=== PATIENT | female | born 1975 | race Caucasian/White ===

== ENCOUNTER → 2018-03-22 10:56 | Outpatient (CLI) | payer OTHER, SELFPAY ==
--- NOTE | 2018-03-22 11:00 | RAD_ITS ---
STUDY: X-RAY CHEST REASON FOR EXAM: Female, 42 years old. Sarcoid TECHNIQUE: Frontal and lateral views of the chest were obtained. COMPARISON: None. FINDINGS: The lungs are adequately aerated. There are no focal airspace opacities. There is no demonstrated pleural abnormality. The cardiac silhouette is normal in size. There is bilateral hilar prominence, right greater than left. Normal visualized pulmonary arteries. Normal visualized aortic arch and descending thoracic aorta. The thoracic spine is unremarkable. The visualized ribs, clavicles, and shoulders are unremarkable. There is no demonstrated abnormality of the visualized upper abdomen. RAD/Chest PA and Lateral IMPRESSION: No acute cardiopulmonary abnormalities. There is bilateral hilar fullness, likely representing enlarged lymph nodes. This is more pronounced on the right. There are no fibrotic changes seen in the lungs. Electronically Signed: Bonnie Márquez MD at 19:36 EDT Tel Direct: [phone], Service support ,
== END ==
PROVIDERS: Family Provider Nurse Practitioner; PCP Nurse Practitioner; Visit Provider Nurse Practitioner
DX: D86.9 Sarcoidosis, unspecified (principal)
CPT/HCPCS: 71046

== ENCOUNTER → 2022-05-03 | Outpatient (CLI) | payer OTHER, SELFPAY | END | disposition home or self-care (01) | LOC: LABSPEC 13:05 | PROVIDERS: PCP Nurse Practitioner; Referring Provider Registered Nurse; Visit Provider Registered Nurse | DX: R10.32 Left lower quadrant pain (principal); R79.82 Elevated C-reactive protein (CRP) | CPT/HCPCS: 86140 ==

== ENCOUNTER 2023-08-08 11:46 | Emergency (ER) | payer OTHER, SELFPAY ==
[2023-08-08 11:47] VITALS: BP 149/77; PULSE 123; RESP 18; TEMP 36; O2SAT 100; BMI 29.9
--- NOTE | 2023-08-08 12:04 | EX.ED.DYSGE1 ---
HPI History of Present Illness Chief Complaint: Palpitations Informant: patient Narrative Narrative: 47-year-old female presenting with palpitations that have been occurring episodically for the past week or so but today is much more prominent with the lightheadedness. She states she was monitoring her heart rate with a finger home pulse oximeter, she was ranging anywhere from 60-90 and feeling like her heart was intermittently beating hard. She denies any dyspnea or chest pains of any sort other than that. In the past week she has had no dyspnea, chest discomfort, pleuritic discomfort, or lightheadedness/syncope, and she did not have any syncope or near syncope today. She denies any recent pain or swelling in her legs, recent immobilization, hospitalization, or surgery. She denies any history of DVT or PE. She takes levothyroxine for Gale thyroiditis which has not been changed lately, and she has sarcoidosis for which the majority of time she takes nothing, she did not have any symptoms of a flareup lately. Denies any other recent illness. Denies any new stimulants and does not use any drugs. [facility] Medical History (Updated 08/08/23 @ 15:[address] Clarence Bunn MD) History of frequent headaches Thyroid disease Home Medications Lactobacillus acidophil,plantar-Bifido no.7 15 billion cell capsule (up4 Probiotics Adult) cap PO 10/24/19 [History Last Taken Unknown] benzonatate 200 mg capsule 200 mg PO TID PRN cough #20 caps 10/24/19 [Rx Last Taken Unknown] fluconazole 200 mg tablet 200 mg PO DAILY #1 TAB 10/24/19 [Rx Last Taken Unknown] levothyroxine 25 mcg tablet (Synthroid) 25 mcg PO DAILY 10/24/19 [History Last Taken Unknown] multivitamin 1 tab PO DAILY 10/24/19 [History Last Taken Unknown] Allergy/AdvReac Type Severity Reaction Status Date / Time No Known Allergies Allergy Verified 08/08/23 11:47 Surgical History History of tonsillectomy and adenoidectomy Social History Smoking Status: Never smoker alcohol intake: never ROS ROS ED Constitutional Constitutional ED: Denies chills or fever(s) Eyes Eyes: Denies change in vision or diplopia ENT ENT ED: Denies rhinorrhea or sore throat Cardiovascular Cardiovascular: Reports lightheadedness and palpitations; Denies chest pain, leg edema or orthostatic symptoms Respiratory/Chest Respiratory/Chest: Denies cough or dyspnea Gastrointestinal Gastrointestinal: Reports nausea; Denies abdominal pain, diarrhea or vomiting Genitourinary Genitourinary ED: Denies dysuria or hematuria Musculoskeletal Musculoskeletal: Denies back pain or neck pain Integumentary Denies abscess or rash Neurologic Neurologic: Denies headache(s), paresthesias or weakness Psychiatric Psychiatric: Denies suicidal ideation or suicidal thoughts EXAM Physical Exam Const Vital Signs: 08/08/23 11:47 08/08/23 12:33 08/08/23 14:55 Temperature 96.8 F L Temperature Source Temporal Pulse Rate 123 H Respiratory Rate 18 Blood Pressure 149/77 H Blood Pressure Mean 101 Pulse Ox 100 Oxygen Delivery Method Room Air Room Air Room Air 08/08/23 13:00 08/08/23 13:10 Temperature Temperature Source Pulse Rate 104 H Respiratory Rate 15 Blood Pressure 122/74 H Blood Pressure Mean 89 Pulse Ox 100 Oxygen Delivery Method Positive well nourished and well developed General Appearance ED: well developed and NAD HEENT Reports moist mucous membranes normocephalic and atraumatic Eyes PERRL and EOMs intact bilaterally Neck full ROM and supple Resp normal respiratory effort and clear to auscultation bilaterally Effort and Inspection: able to speak in complete sentences Cardio regular rate, regular rhythm and no murmurs Rate: tachycardic GI non-tender and non-distended Auscultation: normoactive bowel sounds Palpation: soft Back/Spine no CVA tenderness General Back: other FROM Extremity normal to inspection and no calf tenderness General Extremety ED: Negative for edema, pulses abnormal or tenderness General Extremity: Negative for edema or pulses abnormal Neuro oriented x3, CN's II-XII intact bilaterally and no sensory deficits noted Sensorium / Orientation: awake and alert Motor Exam: strength 5/5 throughout Psych mental status grossly normal Mood & Affect: anxious Skin no rashes or lesions noted and no wounds MDM MDM MDM Narrative Medical decision making narrative: Upon getting patient on the monitor she had a mild resting tachycardia, but throughout the rest of her ED visit over 3 hours she had no more episodes of palpitations. She has been having them fairly frequently over the past week. Her workup is negative. D-dimer is negative, troponin is 3, her EKG showed sinus tachycardia at 109 but is otherwise normal on my interpretation, her TSH is actually a little high, certainly indicating that she is not in an acute hyperthyroid state. Her potassium was a little low unclear if that is related here, we did give her some oral potassium for temporary replacement. Her blood pressure was 170 when nurse first checked in triage. On reevaluation without treating her with anything specifically it is 122/74. Unknown if spiking blood pressure is causing any of this, or if she had a dysrhythmia that in turn cause her blood pressure to react transiently. Need to capture her rhythm when she is having palpitations, as differential was wide including A-fib, ectopic atrial tachycardia, ventricular or atrial ectopy, AVNRT, or other supraventricular dysrhythmias. Sounds less likely to be a ventricular dysrhythmia. She is low risk and stable for discharge home close outpatient follow-up, we did have Holter monitors in stock to place on her so we placed a 24-hour and she is advised to follow-up closely as an outpatient she is comfortable with that plan. Lab Data Attestation: I reviewed the patient's lab results. Labs: Laboratory Results - last 24 hr 08/08/23 12:05 WBC 7.4 RBC 5.01 Hgb 16.0 H Hct 44.9 MCV 89.6 MCH 31.9 MCHC 35.6 RDW Std Deviation 39.0 RDW Coeff of Dianne 11.9 Plt Count 405 MPV 10.3 Immature Gran % (Auto) 0.300 Neut % (Auto) 55.0 Lymph % (Auto) 31.5 [place] % (Auto) 7.0 Eos % (Auto) 5.1 H Baso % (Auto) 1.1 H Absolute Neuts (auto) 4.1 Absolute Lymphs (auto) 2.33 Nucleated RBC % 0 D-Dimer Quant (PE/DVT) < 0.27 L Sodium 139 Potassium 3.1 L Chloride 105 Carbon Dioxide 24.0 Anion Gap 10 BUN 8 Creatinine 1.01 Estim Creat Clear Calc 58.82 Est GFR (MDRD) Af Amer 75 Est GFR (MDRD) Non-Af 62 BUN/Creatinine Ratio 7.9 L Glucose 152 H Calcium 9.4 Troponin I High Sens 3 TSH 5.68 H Rhythm Strip Rhythm Strip: Sinus Tach Rate: 112 Ectopy: None EKG Initial EKG: Attestation: I personally reviewed and interpreted this EKG as follows: Interpretation: No Acute Injury Pattern and Sinus Tachycardia (Otherwise normal) Discharge Plan Triage Chief Complaint: Palpitations ED Provider: Clarence Bunn Dx/Rx/DC Orders Clinical Impression: Heart palpitations, Episode of hypertension, Acute hypokalemia Instructions: ED Palpitations Prescriptions: No Action levothyroxine [Synthroid] 25 mcg tablet 25 mcg PO DAILY multivitamin Tablet 1 tab PO DAILY up4 Probiotics Adult 15 billion cell capsule PO benzonatate 200 mg capsule 200 mg PO TID PRN (Reason: cough) Qty: 20 0RF fluconazole 200 mg tablet 200 mg PO DAILY Qty: 1 0RF Rx Instructions: To be taken 24 hours after completing antibiotics and only if symptomatic at that time Primary Care Provider: Tiarra Braun NP Referrals: Tiarra Braun NP, [employer] [employer] [Primary Care Provider] - 3-5 Days Disposition Disposition: Home, Self Care
--- NOTE | 2023-08-08 12:05 | NURSING ---
NO OLD EKGS
[2023-08-08 12:23] LABS: Absolute Lymphocyte Count 2.33 X10^3/uL (0.83-4.51); Absolute Neutrophil Count 4.1 X10^3/uL (2.0-7.7); Basophil# 0.08 X10^3/uL; Basophil% 1.1 % (0-1); Eosinophil# 0.38 X10^3/uL; Eosinophils% 5.1 % (0-5); Hematocrit 44.9 % (37-47); Lymphocyte # 2.33 X10^3/ul (0.83-4.51); Lymphocyte % 31.5 % (19-41); Mean Corp Hgb Conc 35.6 g/dL (32-36); Mean Corpuscular Hgb 31.9 pg (27.0-32.0); Mean Corpuscular Volume 89.6 fL (81-99); Mean Platelet Vol. 10.3 fl (6.2-12.0); Monocyte# 0.52 X10^3/uL; NRBC Flagged by Analyzer 0 % (0-5); Neutrophil # 4.07 X10^3/uL (2.7-7.7); Platelet Count 405 K/mm3 (150-450); RBC Distribution Width CV 11.9 % (11.6-14.6); Red Blood Count 5.01 M/mm3 (4.2-5.4); White Blood Count 7.4 K/mm3 (4.4-11.0)
[2023-08-08] MEDS: 0.9% Normal Saline (1000mL) 1,000 ML 150 ML IV (12:31)
[2023-08-08 12:42] LABS: Anion Gap 10 (5-15); BUN 8 mg/dL (7-18); BUN/Creat Ratio 7.9 RATIO (10-20); Calcium,Total 9.4 mg/dL (8.5-10.1); Chloride 105 mmol/L (98-107); Creatinine, Serum 1.01 mg/dL (0.55-1.02); EST Glomerular Filtration Rate 62 mL/min (>60); Est Glom Filt Rate - Afr Amer 75 mL/min (>60); Estimated Creatinine Clearance 58.82 ml/min; Glucose 152 mg/dL (74-106); Potassium 3.1 mmol/L (3.5-5.1); Sodium Level 139 mmol/L (136-145); Thyroid Stim Hormone (TSH) 5.68 uIU/mL (0.358-3.74); Troponin-I HS 3 pg/mL (3.0-54.0)
[2023-08-08 12:45] LABS: D-Dimer Quantitative (DVT/PE) < 0.27 FEU/ug/m (0.27-0.49)
[2023-08-08 13:00] VITALS: BP 122/74
[2023-08-08 13:10] VITALS: PULSE 104; RESP 15; O2SAT 100
[2023-08-08] MEDS: Potassium Chloride Oral Tablet 20 MEQ 40 MEQ PO (14:13)
== END 2023-08-08 15:14 | disposition home or self-care (01) ==
PROVIDERS: Emergency Provider Emergency Medicine; PCP Registered Nurse; Referring Provider Emergency Medicine; Visit Provider Emergency Medicine
DX: R00.2 Palpitations (principal); E87.6 Hypokalemia; E06.3 Autoimmune thyroiditis; R03.0 Elevated blood-pressure reading, without diagnosis of hypertension; Z79.899 Other long term (current) drug therapy
CPT/HCPCS: 80048; 84443; 84484; 85025; 85379; 93005; 96360; 96361; 99284; J7030

== ENCOUNTER → 2023-08-08 | Outpatient (CLI) | payer OTHER, SELFPAY | END | disposition home or self-care (01) | LOC: PSN 14:54 | PROVIDERS: PCP Registered Nurse; Referring Provider Emergency Medicine; Visit Provider Emergency Medicine | DX: Z00.00 Encounter for general adult medical examination without abnormal findings (principal) ==

== ENCOUNTER 2023-08-21 10:34 | Emergency (ER) | payer OTHER, SELFPAY ==
[2023-08-21 10:35] VITALS: BP 134/85; PULSE 110; RESP 18; TEMP 36.2; O2SAT 98; BMI 28.8
--- NOTE | 2023-08-21 10:48 | EKG12_ITS ---
Test Reason : PALP Blood Pressure : / mmHG Vent. Rate : 107 BPM Atrial Rate : 107 BPM P-R Int : 138 ms QRS Dur : 076 ms QT Int : 352 ms P-R-T Axes : 056 011 052 degrees QTc Int : 469 ms Sinus tachycardia Otherwise normal ECG Confirmed by LATOYA ROBLES, CHARLES ([id number]), production editor LEIDY DE DIOS ([id number]) on 08/22/2023 9:49:42 AM Referred By: REBEKAH/JAZMIN Confirmed By:CHARLES KLEIN MD
--- NOTE | 2023-08-21 10:49 | EX.ED.DYSGE1 ---
HPI History of Present Illness Chief Complaint: Palpitations Narrative Narrative: 48-year-old female past medical history of hypothyroidism presents with heart palpitations that she has had for about 3 weeks. She states she was seen in the emergency department, then followed up with her primary care provider. She states that they did blood work, and she is supposed to have an echocardiogram on Monday, along with a weeklong Holter monitor. She became concerned today because she had a heart rate as high as 125, then she had a significant drop to heart rate in the 40s. Additionally, she states her pulse ox was also in the 60s. This happened 3 times today. [facility] Medical History (Updated 08/21/23 @ 12:09 by Servando Donahue MD) History of frequent headaches Thyroid disease Home Medications Lactobacillus acidophil,plantar-Bifido no.7 15 billion cell capsule (up4 Probiotics Adult) cap PO 10/24/19 [History Last Taken Unknown] benzonatate 200 mg capsule 200 mg PO TID PRN cough #20 caps 10/24/19 [Rx Last Taken Unknown] fluconazole 200 mg tablet 200 mg PO DAILY #1 TAB 10/24/19 [Rx Last Taken Unknown] levothyroxine 25 mcg tablet (Synthroid) 25 mcg PO DAILY 10/24/19 [History Last Taken Unknown] multivitamin 1 tab PO DAILY 10/24/19 [History Last Taken Unknown] Allergy/AdvReac Type Severity Reaction Status Date / Time No Known Allergies Allergy Verified 08/08/23 11:47 Surgical History History of tonsillectomy and adenoidectomy Social History Smoking Status: Never smoker alcohol intake: never ROS ROS ED ROS Narrative Constitutional: No fever, no chills. HEENT: No sore throat. No neck pain. No loss of vision. No rhinorrhea. Cardiovascular: No chest pain. Positive palpitations. No pedal edema. Respiratory: No cough, no shortness of breath. Abdominal: No abdominal pain. No nausea. No vomiting. Genitourinary: No dysuria. No hematuria. Musculoskeletal: No myalgias. No arthralgias. Neurologic: No headaches. No dizziness. No lightheadedness. Skin: No rash. No change in color. Psychiatric: No depression. No anxiety. EXAM Physical Exam Narrative Exam Narrative: Afebrile. Vital signs noted. HEENT: Normocephalic. Atraumatic. PERRL, EOMI. Neck soft and supple. No point tenderness or step off. Cardiovascular: Regular, positive tachycardia, no murmurs, rubs, or gallops appreciated. Respiratory: No tachypnea. Lungs clear to auscultation bilaterally. Gastrointestinal: Abdomen soft, nontender, with normoactive bowel sounds. No rebound or guarding. Neurological: Awake. Alert. Nonfocal, nonlateralizing. Skin: No rash. Normal color. No pallor. Musculoskeletal: No pedal edema. Full range of motion extremities. Const Vital Signs: 08/21/23 10:35 08/21/23 11:02 08/21/23 12:22 Temperature 97.1 F L Temperature Source Temporal Pulse Rate 110 H Pulse Rate [Lying] 86 Pulse Rate [Sitting (for 1 minute prior to obtaining)] 89 Pulse Rate [Standing (for 1 minute prior to obtaining)] 93 Respiratory Rate 18 Blood Pressure 134/85 H 136/75 H Blood Pressure [Lying] 126/78 H Blood Pressure [Sitting (for 1 minute prior to obtaining)] 125/75 H Blood Pressure [Standing (for 1 minute prior to obtaining)] 125/82 H Blood Pressure Mean 101 95 Blood Pressure Mean [Lying] 94 Blood Pressure Mean [Sitting (for 1 minute prior to obtaining)] 91 Blood Pressure Mean [Standing (for 1 minute prior to obtaining)] 96 Pulse Ox 98 Oxygen Delivery Method Room Air MDM MDM MDM Narrative Medical decision making narrative: Concern is for tachybradycardia syndrome versus sinus tachycardia. I have lower suspicion for pulmonary embolism as her pulse ox is currently 98% on room air but she is tachycardic. EKG was obtained and interpreted by myself independently as sinus tachycardia at 107 bpm without ectopy or acute ST changes. No STEMI. She will be placed on the supervisor pipe joints and orthostatics obtained as well. I reviewed her orthostatics and they are negative. She had a normal heart rate, below 100. I reviewed her laboratory work from today and her WBC count is normal at 7.0, hemoglobin normal at 15.0, hematocrit 43.2, platelet count normal at 410. D-dimer is negative at 0.29. High-sensitivity troponin is 4. EKG as documented above. Chest x-ray in 1 view interpreted by myself shows no evidence of an acute process, I have reviewed the radiology report which confirms my independent interpretation. Electrolyte panel was unremarkable except for hypokalemia of 3.2 which was replaced orally with 40 mill equivalents. Chloride was slightly elevated at 109 which I think is nonspecific. I did add a magnesium as she had hypokalemia previously and that is normal at 2.5. Her TSH is elevated above 8. Last time it was checked it was 5. She states that she has followed up with her public health worker and takes 125 mcg of levothyroxine, and when it was checked by endocrinology, her TSH was normal. Regardless, at this point in time I feel she can be discharged to follow-up with her outpatient testing including 1 week Holter monitor and echocardiogram. Return instructions to the emergency department were reviewed. Disposition is discharged home in stable condition. History & Record Review Discussion w/independent historian: Patient Additional record(s) reviewed:: Prior ED visit and Prior labs Lab Data Attestation: I reviewed the patient's lab results. Labs: Laboratory Results - last 24 hr 08/21/23 10:50 WBC 7.0 RBC 4.84 Hgb 15.0 Hct 43.2 MCV 89.3 MCH 31.0 MCHC 34.7 RDW Std Deviation 38.2 RDW Coeff of Dianne 11.8 Plt Count 410 MPV 10.2 Immature Gran % (Auto) 0.300 Neut % (Auto) 67.1 Lymph % (Auto) 23.8 [place] % (Auto) 5.9 Eos % (Auto) 2.0 Baso % (Auto) 0.9 Absolute Neuts (auto) 4.7 Absolute Lymphs (auto) 1.66 Nucleated RBC % 0 D-Dimer Quant (PE/DVT) 0.29 Sodium 141 Potassium 3.2 L Chloride 109 H Carbon Dioxide 24.0 Anion Gap 8 BUN 8 Creatinine 0.99 Estim Creat Clear Calc 59.36 Est GFR (MDRD) Af Amer 77 Est GFR (MDRD) Non-Af 63 BUN/Creatinine Ratio 8.1 L Glucose 178 H Calcium 9.0 Magnesium 2.5 Total Bilirubin 0.50 AST 23 ALT 33 Alkaline Phosphatase 56 Troponin I High Sens 4 Total Protein 7.8 Albumin 4.2 Globulin 3.6 Albumin/Globulin Ratio 1.2 TSH 8.36 H Radiography Diagnostic Testing: Clinical Impression(s) from Imaging Studies Chest X-Ray 08/21/23 11:10 IMPRESSION: Normal x-ray examination of the chest. Electronically Signed: Huang Hussein MD at 11:22 EST , Discharge Plan Triage Chief Complaint: Palpitations ED Provider: Servando Donahue Dx/Rx/DC Orders Clinical Impression: Palpitations, Hypothyroidism, Tachycardia, Hypokalemia Instructions: ED About Arrhythmias, ED Hypothyroidism, ED Hypokalemia, ED Palpitations Prescriptions: No Action levothyroxine [Synthroid] 25 mcg tablet 25 mcg PO DAILY multivitamin Tablet 1 tab PO DAILY up4 Probiotics Adult 15 billion cell capsule PO benzonatate 200 mg capsule 200 mg PO TID PRN (Reason: cough) Qty: 20 0RF fluconazole 200 mg tablet 200 mg PO DAILY Qty: 1 0RF Rx Instructions: To be taken 24 hours after completing antibiotics and only if symptomatic at that time Primary Care Provider: Tiarra Braun NP Referrals: Lupillo Crawford MD [Med Staff - Active Staff] - As soon as possible Tiarra Braun NP, [employer] [employer] [Primary Care Provider] - 1-2 Days if not improving Activity Restrictions/Additional Instructions: Have your potassium rechecked in a few days by your primary care provider. Follow-up regarding your elevated TSH with your public health worker. Have your outpatient tests of echocardiogram and Holter monitor performed as well. Return with consistently low or high heart rate, new or worsening symptoms. Disposition Disposition: Home, Self Care Discharge Date/Time: 08/21/23 12:22
[2023-08-21 11:02] VITALS: BP 125/75; BP 125/82; BP 126/78; PULSE 86; PULSE 89; PULSE 93
[2023-08-21 11:02] LABS: Absolute Lymphocyte Count 1.66 X10^3/uL (0.83-4.51); Absolute Neutrophil Count 4.7 X10^3/uL (2.0-7.7); Basophil# 0.06 X10^3/uL; Basophil% 0.9 % (0-1); Eosinophil# 0.14 X10^3/uL; Hematocrit 43.2 % (37-47); Lymphocyte # 1.66 X10^3/ul (0.83-4.51); Lymphocyte % 23.8 % (19-41); Mean Corp Hgb Conc 34.7 g/dL (32-36); Mean Corpuscular Volume 89.3 fL (81-99); Mean Platelet Vol. 10.2 fl (6.2-12.0); Monocyte# 0.41 X10^3/uL; Monocyte% 5.9 % (0-10); NRBC Flagged by Analyzer 0 % (0-5); Neutrophil # 4.68 X10^3/uL (2.7-7.7); Neutrophil % 67.1 % (47-70); Platelet Count 410 K/mm3 (150-450); RBC Distribution Width CV 11.8 % (11.6-14.6); RBC Distribution Width SD 38.2 fl (35.1-43.9); Red Blood Count 4.84 M/mm3 (4.2-5.4)
[2023-08-21] MEDS: 0.9% Normal Saline (1000mL) 1,000 ML 1000 ML IV (11:03)
--- NOTE | 2023-08-21 11:10 | RAD_ITS ---
STUDY: X-RAY CHEST REASON FOR EXAM: Female, 48 years old. Coronary artery disease . History of sarcoid. TECHNIQUE: Single AP portable view of the chest. COMPARISON: Comparison is made with prior study dated March 22, 2018. FINDINGS: The lungs are clear and expanded. There is no demonstrated pleural abnormality. Normal size heart. Normal mediastinum and aleksandar. Normal visualized pulmonary arteries. Normal visualized aortic arch and descending thoracic aorta. Normal visualized thoracic spine. Normal visualized ribs, clavicles, and shoulders. There is no demonstrated abnormality of the visualized soft tissue structures of the upper abdomen. RAD/Chest 1 View (Portable) IMPRESSION: Normal x-ray examination of the chest. Electronically Signed: Huang Hussein MD at 11:22 EST ,
[2023-08-21 11:19] LABS: D-Dimer Quantitative (DVT/PE) 0.29 FEU/ug/m (0.27-0.49)
[2023-08-21 11:22] LABS: ALB/GLOB Ratio 1.2 RATIO (0.9-2.4); AST(SGOT) 23 U/L (15-37); Alanine Aminotransfer ALT/SGPT 33 U/L (13-56); Albumin, Serum 4.2 g/dL (3.2-5.0); Alkaline Phosphatase 56 U/L (45-117); Anion Gap 8 (5-15); BUN 8 mg/dL (7-18); BUN/Creat Ratio 8.1 RATIO (10-20); Chloride 109 mmol/L (98-107); Creatinine, Serum 0.99 mg/dL (0.55-1.02); EST Glomerular Filtration Rate 63 mL/min (>60); Est Glom Filt Rate - Afr Amer 77 mL/min (>60); Estimated Creatinine Clearance 59.36 ml/min; Globulin 3.6 g/dL (2.2-4.2); Glucose 178 mg/dL (74-106); Potassium 3.2 mmol/L (3.5-5.1); Protein, Total 7.8 g/dL (6.4-8.2); Sodium Level 141 mmol/L (136-145); Thyroid Stim Hormone (TSH) 8.36 uIU/mL (0.358-3.74); Troponin-I HS 4 pg/mL (3.0-54.0)
[2023-08-21 11:51] LABS: Magnesium 2.5 mg/dL (1.6-2.6)
[2023-08-21] MEDS: Potassium Chloride Oral Tablet 20 MEQ 40 MEQ PO (12:05)
[2023-08-21 12:22] VITALS: BP 136/75
== END 2023-08-21 12:22 | disposition home or self-care (01) ==
PROVIDERS: Emergency Provider Emergency Medicine; PCP Registered Nurse; Visit Provider Emergency Medicine
DX: R00.2 Palpitations (principal); E87.6 Hypokalemia; E03.9 Hypothyroidism, unspecified; Z79.899 Other long term (current) drug therapy; R00.0 Tachycardia, unspecified
CPT/HCPCS: 71045; 80053; 83735; 84443; 84484; 85025; 85379; 93005; 96360; 99285; J7030; A4216

== ENCOUNTER 2024-06-07 07:36 | Emergency (ER) | payer OTHER, SELFPAY ==
[2024-06-07 07:37] VITALS: BP 156/79; PULSE 114; RESP 16; TEMP 36.8; O2SAT 99; BMI 28.3
[2024-06-07 07:39] VITALS: BP 156/79; PULSE 111; RESP 16; TEMP 36.8; O2SAT 99
--- NOTE | 2024-06-07 07:57 | EX.ED.DYSGE1 ---
HPI History of Present Illness Chief Complaint: Abd Pain Informant: patient Narrative Narrative: 48-year-old female presenting to the emergency room abdominal pain diarrhea. Patient states that last Monday she began to experience intermittent abdominal pain that seem to move positions. She saw her doctor on Monday and was prescribed Augmentin because she has a history of diverticulitis. She has had recent EGD and colonoscopy with Dr. Henderson. She notes low-grade temperatures. On Monday she developed diarrhea. She states particular at night. She notes some anorexia and notes that if she does try to eat something that seems to make her symptomology worse. She denies any rashes cough sore throat rhinorrhea. She denies urinary symptoms. No prior abdominal surgery [facility] Medical History (Updated 06/07/24 @ 10:[address] Nate Dozier DO) Thyroid disease History of frequent headaches Home Medications ?Medication ?Instructions ?Recorded ?Last Taken ?Type Lactobacillus cap PO 10/24/19 Unknown History acidophil,plantar-Bifido no.7 15 billion cell capsule (up4 Probiotics Adult) benzonatate 200 mg capsule 200 mg PO TID PRN cough #20 caps 10/24/19 Unknown Rx fluconazole 200 mg tablet 200 mg PO DAILY #1 TAB 10/24/19 Unknown Rx levothyroxine 25 mcg tablet 25 mcg PO DAILY 10/24/19 Unknown History (Synthroid) multivitamin 1 tab PO DAILY 10/24/19 Unknown History Allergy/AdvReac Type Severity Reaction Status Date / Time No Known Allergies Allergy Verified 06/07/24 07:39 Surgical History History of tonsillectomy and adenoidectomy Social History Smoking Status: Never smoker alcohol intake: never ROS ROS ED Constitutional Constitutional ED: Reports fever(s) and other Details: low grade fevers ; Denies chills or weight loss Eyes Eyes: Denies change in vision or diplopia ENT ENT ED: Denies ear pain, rhinorrhea or sore throat Cardiovascular Cardiovascular: Denies chest pain, orthopnea, palpitations or racing heartbeat Respiratory/Chest Respiratory/Chest: Denies cough, dyspnea or orthopnea Gastrointestinal Gastrointestinal: Reports abdominal pain, diarrhea and other Details: anorexia ; Denies nausea or vomiting Genitourinary Genitourinary ED: Denies dysuria, hematuria or urinary frequency Musculoskeletal Musculoskeletal: Denies arthralgias or myalgias Integumentary Denies abscess or rash Neurologic Neurologic: Denies headache(s) or weakness Psychiatric Psychiatric: Denies anxiety, depression, suicidal ideation or suicidal thoughts Endocrine Endocrinology: Denies polydipsia, polyphagia or polyuria Allergic/Immunologic Allergic/Immunologic ED: Denies mouth swelling, tongue swelling or urticaria EXAM Physical Exam Const Vital Signs: 06/07/24 07:37 06/07/24 07:39 06/07/24 09:36 Temperature 98.3 F 98.3 F Temperature Source Oral Oral Pulse Rate 114 H 111 H 74 Respiratory Rate 16 16 16 Blood Pressure 156/79 H 156/79 H 136/82 H Blood Pressure Mean 104 104 100 Pulse Ox 99 99 99 Oxygen Delivery Method Room Air Room Air 06/07/24 10:29 Temperature 98 F Temperature Source Pulse Rate 74 Respiratory Rate 16 Blood Pressure 136/82 H Blood Pressure Mean 100 Pulse Ox 99 Oxygen Delivery Method Positive well nourished and well developed General Appearance ED: well developed HEENT Reports normocephalic, head/scalp atraumatic and moist mucous membranes Eyes PERRL and EOMs intact bilaterally Neck no lymphadenopathy, supple and no JVD Resp normal respiratory effort and clear to auscultation bilaterally Cardio regular rate, regular rhythm and no murmurs GI GI Narrative: soft minimal ttp Inspection: Negative for abdominal distention Auscultation: normoactive bowel sounds Palpation: soft; Negative for guarding or rebound tenderness present Back/Spine no CVA tenderness and normal ROM Extremity normal to inspection General Extremety ED: Negative for edema General Extremity: Negative for edema Neuro oriented x3 and CN's II-XII intact bilaterally Sensorium / Orientation: alert Motor Exam: strength 5/5 throughout Psych mental status grossly normal Mood & Affect: Negative for depressed or tearful Skin no rashes or lesions noted and no wounds MDM MDM MDM Narrative Medical decision making narrative: Differential diagnosis would include but not limited to diverticulitis diverticular abscess colitis appendicitis biliary disease medication reaction UTI Patient's white count is 9.5 hemoglobin 15.8 BMP with a creatinine 1.04 normal LFTs normal lipase test negative urinalysis negative for obvious infection CT of the abdomen pelvis demonstrates diverticulosis but no evidence of colitis or active diverticulitis. I spoke with the patient. As a not seeing any inflammatory changes and a possibility could be that some of the diarrhea would be related to her medication would have her stop the antibiotic. Heart rate is down to 74 with normal blood pressure. Patient will be discharged home follow-up with primary care return if worsening History & Record Review Discussion w/independent historian: Patient Lab Data Attestation: I reviewed the patient's lab results. Labs: Laboratory Results - last 24 hr 06/07/24 06/07/24 08:35 09:14 WBC 9.5 RBC 5.04 Hgb 15.8 H Hct 45.5 MCV 90.3 MCH 31.3 MCHC 34.7 RDW Std Deviation 40.0 RDW Coeff of Dianne 12.2 Plt Count 392 MPV 10.2 Immature Gran % (Auto) 0.300 Neut % (Auto) 78.9 H Lymph % (Auto) 14.8 L [place] % (Auto) 5.1 Eos % (Auto) 0.4 Baso % (Auto) 0.5 Absolute Neuts (auto) 7.5 Absolute Lymphs (auto) 1.41 Nucleated RBC % 0 Sodium 138 Potassium 4.1 Chloride 107 Carbon Dioxide 27.0 Anion Gap 4 L BUN 7 Creatinine 1.04 H Estim Creat Clear Calc 64.83 Est GFR (MDRD) Af Amer 72 Est GFR (MDRD) Non-Af 60 BUN/Creatinine Ratio 6.7 L Glucose 128 H Calcium 9.4 Total Bilirubin 1.00 Direct Bilirubin 0.19 AST 22 ALT 32 Alkaline Phosphatase 62 Total Protein 7.9 Albumin 4.3 Globulin 3.6 Lipase 33 Serum , Qual NEGATIVE Urine Color Straw Urine Clarity Clear Urine pH 7.0 Ur Specific [place] 1.005 Urine Protein Negative Urine Glucose (UA) Normal Urine Ketones Negative Urine Occult Blood Negative Urine Nitrite Negative Urine Bilirubin Negative Urine Urobilinogen Normal Ur Leukocyte Esterase Negative Urine RBC 0 SEEN Urine WBC 0 SEEN Ur Squamous Epith Cells 0-5 SEEN Urine Bacteria 1+ Urine Mucus 0 SEEN Radiography Diagnostic Testing: Clinical Impression(s) from Imaging Studies Abdomen/Pelvis CT 06/07/24 08:55 IMPRESSION: Fatty infiltration of the liver. Small gallstones. Sigmoid diverticulosis with no radiographic evidence of diverticulitis at this time. Electronically Signed: Huang Hussein MD at 9:45 EDT , Discharge Plan Triage Chief Complaint: Abd Pain ED Provider: Nate Dozier Dx/Rx/DC Orders Clinical Impression: Abdominal pain, Acute diarrhea Instructions: ED Abdominal Pain Unkn Cause Fem Prescriptions: No Action levothyroxine [Synthroid] 25 mcg tablet 25 mcg PO DAILY multivitamin Tablet 1 tab PO DAILY up4 Probiotics Adult 15 billion cell capsule PO benzonatate 200 mg capsule 200 mg PO TID PRN (Reason: cough) Qty: 20 0RF fluconazole 200 mg tablet 200 mg PO DAILY Qty: 1 0RF Rx Instructions: To be taken 24 hours after completing antibiotics and only if symptomatic at that time Primary Care Provider: Tiarra Braun NP Referrals: Tiarra Braun NP, [employer] OF [employer]S-[employer] [Primary Care Provider] - As Needed Print Language: Armenian Disposition Disposition: Home, Self Care Discharge Date/Time: 06/07/24 10:30
[2024-06-07] MEDS: 0.9% Normal Saline (1000mL) 1,000 ML 999 ML IV (08:34)
[2024-06-07 08:46] LABS: Absolute Lymphocyte Count 1.41 X10^3/uL (0.83-4.51); Absolute Neutrophil Count 7.5 X10^3/uL (2.0-7.7); Basophil# 0.05 X10^3/uL; Basophil% 0.5 % (0-1); Eosinophil# 0.04 X10^3/uL; Eosinophils% 0.4 % (0-5); Hematocrit 45.5 % (37-47); Hemoglobin 15.8 g/dL (12.0-15.0); Lymphocyte # 1.41 X10^3/ul (0.83-4.51); Lymphocyte % 14.8 % (19-41); Mean Corp Hgb Conc 34.7 g/dL (32-36); Mean Corpuscular Hgb 31.3 pg (27.0-32.0); Mean Corpuscular Volume 90.3 fL (81-99); Mean Platelet Vol. 10.2 fl (6.2-12.0); Monocyte# 0.49 X10^3/uL; Monocyte% 5.1 % (0-10); NRBC Flagged by Analyzer 0 % (0-5); Neutrophil # 7.51 X10^3/uL (2.7-7.7); Neutrophil % 78.9 % (47-70); Platelet Count 392 K/mm3 (150-450); RBC Distribution Width CV 12.2 % (11.6-14.6); Red Blood Count 5.04 M/mm3 (4.2-5.4); White Blood Count 9.5 K/mm3 (4.4-11.0)
--- NOTE | 2024-06-07 08:55 | CT_ITS ---
STUDY: CT ABDOMEN AND PELVIS WITH CONTRAST REASON FOR EXAM: Female, 48 years old. Colitis. Abdominal pain and diarrhea. RADIATION DOSAGE (If Supplied By Facility): CTDIvol = ( 12.19 ) mGy, DLP = ( 765.05 ) mGycm TECHNIQUE: Transaxial images were obtained from the dome of the diaphragm to the symphysis pubis without oral contrast. IV 100mL Isovue-370 was administered. Sagittal and coronal images were reconstructed. Individualized dose optimization techniques were used for this CT. COMPARISON: None. FINDINGS: The visualized lung bases are unremarkable. The visualized portions of the heart are within normal limits. There is decreased attenuation of the liver consistent with steatosis. There are small gallstones. There are multiple benign calcified granulomata of the spleen. Normal pancreas. Normal bilateral adrenal glands. Normal right kidney. Normal left kidney. Incidental note is made of a left retroaortic renal vein. There is a small hiatal hernia. Normal small intestine. There are multiple colonic diverticula consistent with diverticulosis. The appendix is visualized and appears normal. Normal abdominal aorta. Normal inferior vena cava. Normal retroperitoneum. Normal urinary bladder. Small benign appearing bilateral inguinal lymph nodes. Normal abdominal wall. Moderate degree of disc space narrowing at the L5-S1 level with spondylosis. Grade 1 anterior listhesis of L5 on S1 due to spondylolysis of the pars interarticularis of the L5 vertebrae. CT/Abdomen/Pelvis W IV Cont ONLY IMPRESSION: Fatty infiltration of the liver. Small gallstones. Sigmoid diverticulosis with no radiographic evidence of diverticulitis at this time. Electronically Signed: Huang Hussein MD at 9:45 EDT ,
[2024-06-07 08:58] LABS: Internal QC Validated? YES +Cl - CLEAR BKGD; Pregnancy, Serum, hCG Quali. NEGATIVE Negative; Record Kit Lot#, Serum Preg. HCG0000772476
[2024-06-07 09:11] LABS: AST(SGOT) 22 U/L (15-37); Alanine Aminotransfer ALT/SGPT 32 U/L (13-56); Albumin, Serum 4.3 g/dL (3.2-5.0); Alkaline Phosphatase 62 U/L (45-117); Anion Gap 4 (5-15); BUN 7 mg/dL (7-18); BUN/Creat Ratio 6.7 RATIO (10-20); Bilirubin, Direct 0.19 mg/dL (0.00-0.30); Calcium,Total 9.4 mg/dL (8.5-10.1); Chloride 107 mmol/L (98-107); Creatinine, Serum 1.04 mg/dL (0.55-1.02); EST Glomerular Filtration Rate 60 mL/min (>60); Est Glom Filt Rate - Afr Amer 72 mL/min (>60); Estimated Creatinine Clearance 64.83 ml/min; Globulin 3.6 g/dL (2.2-4.2); Glucose 128 mg/dL (74-106); Lipase 33 U/L (13-75); Potassium 4.1 mmol/L (3.5-5.1); Protein, Total 7.9 g/dL (6.4-8.2); Sodium Level 138 mmol/L (136-145)
[2024-06-07 09:23] LABS: Mucous, Urine 0 SEEN /hpf (<or=2+); Red Blood Cells-Urine 0 SEEN /hpf (0-5); White Blood Cells 0 SEEN /hpf (0-5)
[2024-06-07 09:28] LABS: Color, Urine Straw (Yellow); Glucose, Dipstick Normal (Normal); Ketone-Dipstick Negative (Negative); Leukocyte Esterase-Dipstick Negative /ul (Negative); Nitrite-Dipstick Negative (Negative); Occult Blood-Urine Negative /ul (Negative); Protein-Dipstick Negative (Negative); Specific Gravity, Urine 1.005 (1.002-1.030); Urine Bilirubin Dipstick Negative (Negative); Urine Clarity Clear (Clear); Urine Urobilinogen Normal (Normal)
[2024-06-07 09:36] VITALS: BP 136/82; PULSE 74; RESP 16; O2SAT 99
[2024-06-07 09:38] LABS: Bacteria 1+ /hpf (None Seen); Squamous Epithelial Cells - UA 0-5 SEEN /hpf (5-10)
[2024-06-07 10:29] VITALS: BP 136/82; PULSE 74; RESP 16; TEMP 36.6; O2SAT 99
== END 2024-06-07 10:30 | disposition home or self-care (01) ==
PROVIDERS: Emergency Provider Emergency Medicine; PCP Registered Nurse; Visit Provider Emergency Medicine
DX: R10.9 Unspecified abdominal pain (principal); R19.7 Diarrhea, unspecified
CPT/HCPCS: 74177; 80048; 80076; 81001; 83690; 84703; 85025; 96360; 99283; J7030; Q9967; A4216